=== PATIENT | male | born 1995 | race African-American/Black ===

== ENCOUNTER 2020-07-25 09:48 | Inpatient (IN) | payer OTHER ==
[~2020-07-25] VITALS: Ht 170.2 cm; Wt 83.9 kg
--- NOTE | 2020-07-25 10:38 | NUR ---
Patient has Covid-19 on his chart that is negative from [facility]. I called to verify the results.
--- NOTE | 2020-07-25 10:45 | NUR ---
RCD PT FROM [facility] BY [facility]EL [facility] PT IS ALERT AND ORIENTED VITALS CHECKED PT RESTING ON BED ADMISSION ASSESSMENT AND HISTORY DONE PT HAVE SWELLING ON LEFT ELBOW DRESSING OVER THERE HE DENIED ANY PAIN THIS TIME IV PATENT BY SALINE FLUSH ,INSTRUCTED PT ABOUT HOSPITAL POLICY AND VISITING POLICY BED LOW AND LOCKED CALL LIGHT IN REACH
--- NOTE | 2020-07-25 11:00 | NUR ---
PAGED DR SANCHEZ AND NOTIFIED THE DIET AND MEDICATIONS HE SAID HE WILL TAKE CARE OF THAT
[2020-07-25] MEDS ORDERED: ACETAMINOPHEN 325 MG TAB PO PRN (11:30)
[2020-07-25 11:37] VITALS: BP 130/87
[2020-07-25] MEDS: MORPHINE SULFATE INJ 4 MG/ML INJ 1ML IV PRN ×2 (12:07→18:05)
[2020-07-25] MEDS: ONDANSETRON HCL INJ 2MG/ML 2ML 2 MG/ML VIAL IV PRN ×2 (12:07→18:05)
[2020-07-25 12:25] VITALS: BP 130/87
[2020-07-25 13:37] VITALS: BP_SYST 130
--- NOTE | 2020-07-25 14:00 | NUR ---
COVID TEST DONE REPORT ON CHART( NEG)
--- NOTE | 2020-07-25 14:24 | Consultation ---
DATE OF CONSULTATION: 07/25/2020 REASON FOR CONSULTATION: Left elbow pain. REQUESTING PHYSICIAN: Leonel Fontenot MD. CHIEF COMPLAINT: Left elbow pain. HISTORY OF PRESENT ILLNESS: Nanette Gasca is a 25-year-old male with no past medical history, presents with left elbow pain. It has been present for the past five days. He states that this started with an ingrown hair on his left elbow that he picked with and eventually became infected. He sought care approximately a few days ago when he was prescribed p.o. antibiotics, but continued to have pain over the last five days. He presented to the emergency department last night where he was found to have a left elbow abscess and underwent bedside I and D in the emergency department and packing. He states that his elbow feels better after that. He was admitted for IV antibiotics. He states that his pain is improving. No fevers or chills. No pain with range of motion of the elbow. PAST MEDICAL HISTORY: None. PAST SURGICAL HISTORY: None. 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 No drugs. The patient has an occasional alcohol use. PAST FAMILY HISTORY: None apparent. REVIEW OF SYSTEMS: Negative for numbness or tingling. Negative for fevers or chills. IMAGING DATA: None. LABORATORY STUDIES: Pending. PHYSICAL EXAMINATION: EXTREMITIES: Evaluation of the right upper extremity demonstrates normal painless range of motion. Neurovascularly intact. Nontender to palpation anywhere. Evaluation of left upper extremity demonstrates mild erythema about the elbow extending few centimeters from the tip of the olecranon up to a few cm proximal to the tip of the olecranon. There is approximately 1 cm incision with packing overlying the tip of the olecranon with mild purulent drainage expressed. This is able to be expressed completely. There is packing in place. No other fluctuance noted. There is mild edema to the arm as well. He demonstrates intact AIN, PIN, and ulnar motor function. Sensation intact to light touch in the median, radial, ulnar nerve distributions. His fingers are warm and well perfused. He has no pain with elbow extension. He has mild pain with elbow flexion beyond 90 degrees. ASSESSMENT: Left elbow cellulitis and septic olecranon bursitis, status post bedside I and D in the emergency department 07/24/2020. PLAN: Discussed with the patient that at this point, he does have an infection in his elbow and olecranon bursa; however, subjectively his symptoms are improved and appears to be decompressed. We will start soaks with 50% hydrogen peroxide, 50% saline to his elbow twice a day starting today with packing to be removed and replaced after soak. He has had a compressive Obed wrap over his elbow at all times otherwise instructed elevation of the arm. We will continue to follow. Continue antibiotics per primary team. If no improvement, may consider surgical intervention. However, at this point, does appear to be improved status post I and D. MD JOANNE Díaz/LUIS FELIPE /[id number]
[2020-07-25] MEDS: ACETAMINOPHEN/CODEINE 300MG - 30MG TAB PO PRN (14:50)
--- NOTE | 2020-07-25 14:50 | Diagnostic Imaging Report ---
Exam: Left elbow radiographs-3 views Clinical History: Cellulitis. Comparison: None. Findings/Impression: No evidence of acute fracture or melanoma. No radiographic evidence of osteomyelitis.. No bony erosion. Soft tissue irregularity, with suspected laceration in the volar elbow soft tissues. Surrounding soft tissue edema. No significant elbow joint effusion. Signed by: Dr. German Dawn MD on 07/25/2020 2:47 PM
--- NOTE | 2020-07-25 15:00 | NUR ---
HALF NS AND HALF HYDROGEN PEROXIDE SOAK GIVEN AND DRESSING DONE
--- NOTE | 2020-07-25 15:21 | NUR ---
consult [id number]
[2020-07-25] MEDS ORDERED: SODIUM CHLORIDE 0.9% 250ML 250 ML ONE (17:22)
[2020-07-25] MEDS ORDERED: VANCOMYCIN 1GM/NS 250 ML 250 ML IV SCH (17:30)
[2020-07-25] MEDS: VANCOMYCIN HCL 1.25 GM in SODIUM CHLORIDE 0.9% 250ML 250 ML IV SCH (17:30)
--- NOTE | 2020-07-25 18:10 | Consultation ---
DATE OF CONSULTATION: 07/25/2020 REQUESTING PHYSICIAN: Leonel Fontenot MD REASON FOR CONSULTATION: Consultation requested regarding cellulitis/abscess left elbow. HISTORY OF PRESENT ILLNESS: This is a 25-year-old male, who has no major medical illnesses and no past surgical history, has been complaining of pain in the left elbow for the past 5 days, some swelling, which started around an ingrown hair. He picked on it, it became infected, was placed on some oral antibiotic treatment, but without any improvement, came into the emergency room, noted to have fever and swelling along the left elbow, was seen by Orthopedic Surgery and a localized drainage was performed, cultures are still pending. REVIEW OF SYSTEMS: HEENT: Denies any headaches, visual complaints, sinus congestion, earache, throat pain, or neck pain. RESPIRATORY: No cough or shortness of breath. CARDIOVASCULAR: No chest pain, no palpitations. GI: No nausea, vomiting, or diarrhea. : No urinary symptoms. PAST MEDICAL HISTORY: None. PAST SURGICAL HISTORY: None. ALLERGIES: NO KNOWN DRUG ALLERGIES. CURRENT MEDICATIONS: None. FAMILY HISTORY: Noncontributory. SOCIAL HISTORY: No active alcohol, tobacco, or drug use. PHYSICAL EXAMINATION: VITAL SIGNS: Temperature 97.6, pulse 79, respiratory rate 18, and blood pressure 130/87. HEENT: Normocephalic, atraumatic. Extraocular movements not accessed. NECK: Supple. LUNGS: Fair air entry bilaterally. Clear to auscultation. HEART: Sounds S1, S2. No murmur. No gallop. ABDOMEN: Soft, nontender, and normoactive bowel sounds. EXTREMITIES: There is induration along the left elbow with the full range of motion along the left elbow area. It is warm and tender to touch. LABORATORY DATA: Pending. ASSESSMENT: 1. Cellulitis and probable infected bursitis left elbow, status post drainage. 2. Probable Staphylococcus aureus infection with likely MRSA. RECOMMENDATIONS: Antibiotic treatment with intravenous vancomycin. We will follow up cultures. Further recommendations based on clinical response and culture results. Thank you, Dr. Fontenot for this consultation. We will follow the patient along with you. Billy Henry MD SR/MODL /[id number] cc: Leonel Fontenot MD
[2020-07-25] MEDS ORDERED: LACTATED RINGER'S 1,000 ML INJ ONE (18:30)
--- NOTE | 2020-07-25 18:44 | NUR ---
pt resting on bed bed side report given to oncoming nurse
[2020-07-25 20:00] VITALS: BP 134/80
--- NOTE | 2020-07-25 20:10 | History and Physical ---
CHIEF COMPLAINT: Left elbow pain. HISTORY OF PRESENT ILLNESS: This is a healthy 25-year-old male, who was [facility] and was diagnosed with olecranon bursitis. The patient had an I and D done by the emergency room doctor and felt better afterwards. The patient denies any fever. No nausea, vomiting. This started a week ago when there was a bump on his left shoulder. Subsequently, he picked on it and it got worse and it got swollen and red and painful. The patient took some amoxicillin that he had, however, did not improve, and finally he went to the emergency room. Denies any chest pain. No shortness of breath. The patient has no history of soft tissue abscess in the calf. The patient did not have a lot of pain when he moves his left elbow. PAST MEDICAL AND SURGICAL HISTORY: None. MEDICATIONS: None. ALLERGIES: NONE. SOCIAL HISTORY: He vapes. Occasional alcohol. FAMILY HISTORY: Diabetes. REVIEW OF SYSTEMS: Ten-point review of system obtained and nothing else is significant other than what is stated in the HPI. PHYSICAL EXAMINATION: VITAL SIGNS: Temperature 97.6, pulse 79, respiratory rate 18, blood pressure 130/87. GENERAL: In no acute distress. SKIN: Left elbow takedown which was examined by the orthopedic surgeon. HEENT: Anicteric. Oropharynx is clear. LUNGS: Clear. HEART: Regular rate and rhythm. Normal S1, S2. GI: Abdomen is soft, nondistended. NEUROLOGIC: Alert and oriented x3. Cranial nerves II through XII grossly intact. PSYCHIATRIC: No hallucination. MUSCULOSKELETAL: Normal range of motion of his left elbow. LABORATORY DATA: Laboratory from outside ER, white count 12.6, hemoglobin 17.0, platelet count 189. Creatinine 0.8. ASSESSMENT AND PLAN: 1. Left elbow cellulitis with septic olecranon bursitis, status post bedside incision and drainage. Both Orthopedic and ID have been consulted. For now, IV fluid, IV vancomycin, and monitor. I have updated his mother over the phone. IV morphine as needed. We will wait for outside wound culture results, possibly Staph aureus, may be MRSA. 2. GI and DVT prophylaxis, low risk, not indicated. MD CHELSEA Tucker/LUIS FELIPE /[id number]
--- NOTE | 2020-07-25 21:00 | NUR ---
patient requesting sleep medication for inability to sleep, advised patient that MD SANCHEZ WAS PAGED AWAITING CALL BACK
--- NOTE | 2020-07-25 21:30 | NUR ---
MD SANCHEZ CONTACTED VIA TELEPHONE/MESSAGE LEFT , CALLBACK RECEIVED ADVISED MD OF PATIENT REQUEST, ORDERED TO GIVE TEMAZEPAM PO PRN, ORDER CARRIED OUT
--- NOTE | 2020-07-25 21:40 | NUR ---
HOURLY ROUNDING COMPLETED PER PROTOCOL, PT AOX4 SITTING IN BED, REQUESTING TO BE UNHOOK FROM IV FOR TOILETING AND TO OBTAIN SNACKS FROM VENDING MACHINE, SAFETY MAINTAINED, PATIENT RETURN SAFELY TO THE FLOOR, SNACKS GIVEN PER REQUEST, IV FLUIDS CONTINUED ; IV SITE REMAINS INTACT, NO REDNESS/SWELLING SEEN, CALL LIGHT WITHIN REACH, BED IN LOWEST POSITION, COMFORT MEASURES INCREASED
[2020-07-25] MEDS ORDERED: TEMAZEPAM 15 MG CAP PO PRN (21:45)
--- NOTE | 2020-07-25 22:13 | NUR ---
LR @150CC ONE TIME ONLY BOLUS, CONTINUES PATIENT TOLERATING WELL
[2020-07-26] VITALS (8 sets, daily range): BP systolic 107–152; BP diastolic 54–109
[2020-07-26] MEDS: MORPHINE SULFATE INJ 4 MG/ML INJ 1ML IV PRN ×2 (00:27→10:15)
[2020-07-26] MEDS: ONDANSETRON HCL INJ 2MG/ML 2ML 2 MG/ML VIAL IV PRN ×2 (00:27→10:15)
[2020-07-26] MEDS: VANCOMYCIN HCL 1.25 GM in SODIUM CHLORIDE 0.9% 250ML 250 ML IV SCH ×2 (05:24→17:30)
[2020-07-26 06:45] LABS: BASOPHILS % 0.5 % (0.0-1.0); EOSINOPHILS # (AUTO) 0.2 (0.0-0.4); EOSINOPHILS % 2.5 % (0.0-6.0); HEMATOCRIT 41.3 % (38.2-49.6); HEMOGLOBIN 14.1 g/dL (14.0-18.0); LYMPHOCYTES # (AUTO) 2.1 (1.0-3.2); MEAN CORPUSCULAR HEMOGLOBIN 29.7 pg (28-32); MEAN CORPUSCULAR HGB CONC 34.1 g/dL (31-35); MEAN CORPUSCULAR VOLUME 87.1 fL (81-99); MONOCYTES # (AUTO) 0.6 (0.2-0.8); MONOCYTES % 6.8 % (4.4-11.3); NEUTROPHILS # (AUTO) 5.3 (2.1-6.9); NEUTROPHILS % 63.7 % (38.7-80.0); PLATELET COUNT 166 x10e3/uL (140-360); RED BLOOD COUNT 4.74 x10e6/uL (4.3-5.7); RED CELL DISTRIBUTION WIDTH 12.1 % (11.7-14.4)
[2020-07-26 06:52] LABS: INR 0.96; PROTHROMBIN TIME 13.3 seconds (11.9-14.5)
[2020-07-26 07:00] LABS: ANION GAP 13.1 mmol/L (8-16); BLOOD UREA NITROGEN 10 mg/dL (7-26); BUN/CREATININE RATIO 11 (6-25); CALCIUM 9.1 mg/dL (8.4-10.2); CARBON DIOXIDE 23 mmol/L (22-29); CHLORIDE 106 mmol/L (98-107); CREATININE, SERUM 0.91 mg/dL (0.72-1.25); EST GLOMERULAR FILTRATION RATE > 60 ML/MIN (60-); GLUCOSE 108 mg/dL (74-118); POTASSIUM 4.1 mmol/L (3.5-5.1); SODIUM 138 mmol/L (136-145)
--- NOTE | 2020-07-26 07:00 | NUR ---
RCD PT AT BED PT IS ALERT AND ORIENTED RESTING ON BED IV PATENT BED LOW AND LOCKED CALL LIGHT IN REACH
--- NOTE | 2020-07-26 10:24 | NUR ---
DRESSING CHANGED AFTER SOAK
--- NOTE | 2020-07-26 16:35 | NUR ---
AC TO HUMAIRA BRITTO TROUGH BEFORE 4TH DOSE
[2020-07-26] MEDS ORDERED: SODIUM CHLORIDE 0.9% 250ML 250 ML ONE (17:07)
--- NOTE | 2020-07-26 18:03 | Progress Note ---
DATE: 07/26/2020 CHIEF COMPLAINT: Left elbow pain. HISTORY OF PRESENT ILLNESS: Nanette is a 25-year-old male with history of left septic olecranon bursitis, status post incision and debridement in the emergency department on 07/24/2020. He started doing soaks and packing his wound yesterday and has been on antibiotics. He states that his symptoms are much improved. He has no significant pain. He states that he is feeling much better. No numbness or tingling in his fingers. REVIEW OF SYSTEMS: Negative for fever or chills. Negative for numbness or tingling. PHYSICAL EXAMINATION: EXTREMITIES: Evaluation of the left extremity demonstrates erythema significantly improved to the left elbow. The swelling significantly improved. There is incision at the posterior elbow in the olecranon bursa with packing in place. There is no fluctuance appreciated. There is mild tenderness to palpation. He can perform full range of motion of the elbow without any pain. He is neurovascularly intact distally. IMAGING AND LABORATORY STUDIES: Demonstrate white blood cell count 8. X-rays of the left elbow demonstrate no fracture or dislocation and swelling of the left elbow. ASSESSMENT: Improving left elbow septic olecranon bursitis. PLAN: Discussed with the patient that he is doing very well at this time. Symptoms are much improved. At this point he to p.o. antibiotics and discharge home if he is able to continue doing soaks and packing at home. I instructed the patient on the importance of doing packing and soaks at home. He will discuss this with family to see if they are able to do this with him at home. He is okay to discharge home tomorrow if able to comply with at home. I will see him back in the office in one week for repeat evaluation. He is to continue and exchange the packing each time. MD JOANNE Díaz/LUIS FELIPE /[id number]
--- NOTE | 2020-07-26 18:21 | NUR ---
PAGED DR SANCHEZ AND CLARIFIED THE COVID TEST SINCE THE PT DID THE TEST ON YESTURDAY REPORT IS NEGATIVE ITS ON CHART ,PT CAME ON THE SAME DAY TO HERE. HE SAID CANCEL THE ORDER
--- NOTE | 2020-07-26 18:42 | NUR ---
PT RESTING ON BED BED SIDE REPORT GIVEN TO ONCOMING NURSE
--- NOTE | 2020-07-26 18:58 | NUR ---
SBAR REPORT RECEIVED AT BEDSIDE, PATIENT AWAKE ALERT, ORIENTED REPORT PAIN LEVEL TOLERABLE, LEFT ELBOW WRAPPED, DRESSING DRY INTACT AOX4, GAIT STEADY, PATIENT MADE AWARE THAT POSSIBLE DISCHARGE TOMORROW, EDUCATED ON PAIN MEDICATION, CONCERNS ABOUT WRAPPING WOUND ADDRESSED WITH PATIENT, BED IN LOWEST POSITION AND LOCKED, CALL LIGHT WITHIN REACH
[2020-07-26] MEDS: ACETAMINOPHEN/CODEINE 300MG - 30MG TAB PO PRN (19:48)
--- NOTE | 2020-07-26 22:13 | Progress Note ---
DATE: 07/26/2020 SUBJECTIVE: Left elbow, left hand swelling better. Feels better. Pain has decreased as well. OBJECTIVE: VITAL SIGNS: Temperature 98.0, pulse 86, respiratory rate 20, and blood pressure 138/73. GENERAL: No acute distress. SKIN: No rash. LUNGS: Clear. HEART: Regular rate and rhythm. Normal S1 and S2. GI: Abdomen is soft and nondistended. NEUROLOGIC: Alert and oriented x3. PSYCHIATRIC: No hallucination. LABORATORY DATA: White count 8, hemoglobin 14, and platelet count 166. Creatinine 0.9. ASSESSMENT AND PLAN: 1. Left elbow cellulitis with septic olecranon bursitis, status post bedside incision and drainage. We will continue IV vancomycin. Hopefully, we will get culture results from outside lab tomorrow. Both Infectious Disease and Orthopedics are following as well. The patient potentially can go home tomorrow depending on culture results if available. I have updated his parents over the phone again today. 2. Gastrointestinal and deep venous thrombosis prophylaxis. Low risk, not indicated. MD CHELSEA Tucker/LUIS FELIPE /[id number]
[2020-07-27] VITALS (10 sets, daily range): BP systolic 110–136; BP diastolic 72–89
--- NOTE | 2020-07-27 00:17 | NUR ---
HOURLY ROUNDING COMPLETED PATIENT REQUESTING PAIN MEDICATION FOR PAIN LEVEL 5/10 R/T LEFT ELBOW CELLULITIS, REQUEST CARRIED OUT, PATIENT SEEN LYING IN BED ON PHONE, DRESSED IN STREET CLOTHES, REFUSE GOWN, PERSONAL BELONGINGS WITHIN REACH, WILL CONTINUE TO MONITOR CALL LIGHT WITHIN REACH
[2020-07-27] MEDS: ACETAMINOPHEN/CODEINE 300MG - 30MG TAB PO PRN ×2 (00:20→05:09)
[2020-07-27] MEDS: VANCOMYCIN HCL 1.25 GM in SODIUM CHLORIDE 0.9% 250ML 250 ML IV SCH ×2 (06:28→18:34)
--- NOTE | 2020-07-27 06:29 | NUR ---
VANCO TROUGH PERFORMED PRIOR TO 4TH DOSE ORDERD BY , VANCO TROUGH 7.1, THERAPY CONTINUED
[2020-07-27] MEDS: MORPHINE SULFATE INJ 4 MG/ML INJ 1ML IV PRN (08:30)
--- NOTE | 2020-07-27 18:33 | Progress Note ---
DATE: CONSULTING PHYSICIAN: Jazzy Rico MD CHIEF COMPLAINT: Left elbow pain. HISTORY OF PRESENT ILLNESS: Nanette is a 25-year-old male who is now three days status post incision and debridement of his left elbow septic olecranon bursitis. He has been doing well with his pain well controlled. He notes that his pain is significantly improved. No numbness or tingling to his fingers. REVIEW OF SYSTEMS: Negative for fevers or chills. Negative for numbness or tingling. PHYSICAL EXAMINATION: No acute distress, lying in bed. No discoloration. Left upper extremity demonstrates packing in place. There is no erythema. There is minimal drainage from his incision. He has full painless elbow range of motion and is neurovascularly intact distally. ASSESSMENT: Doing well status post incision and debridement of left septic olecranon bursitis. PLAN: Doing well. The patient is stable for discharge home. He will continue appropriate antibiotics. We will see him back in the office in one week for repeat evaluation. Jazzy Rico MD HD/MODL /[id number]
--- NOTE | 2020-07-27 19:25 | NUR ---
Patient received sitting up in bed. AAO x 4. No complaints of pain. No signs of respiratory distress. Dressing to left elbow CDI. Safety measures in place. Patient instructed to call for assistance when needed. Call light within reach.
--- NOTE | 2020-07-27 20:23 | Progress Note ---
DATE: 07/27/2020 SUBJECTIVE: Left arm feeling better. OBJECTIVE: VITAL SIGNS: Temperature 97.9, pulse 53, respiratory rate 19, blood pressure 136/74. GENERAL: No acute distress. SKIN: No rash. LUNGS: Clear. HEART: Regular rate and rhythm. Normal S1 and S2. GI: Abdomen is soft, nondistended. NEUROLOGIC: Alert and oriented x3. PSYCHIATRIC: No depression. LABORATORY DATA: No new labs today. ASSESSMENT AND PLAN: 1. Left elbow cellulitis with septic olecranon bursitis, status post I and D. We will continue IV vancomycin. Unfortunately, culture results from outside lab still not available. I have spoken to the parents last night over the phone. They are very concerned about their son. At this time, I will wait one more day for culture results to come back all. 2. Gastrointestinal and deep venous thrombosis prophylaxis. Low risk, not indicated. Radhaching MD CHELSEA Altman/LUIS FELIPE /[id number]
[2020-07-28] VITALS: BP 149/77
[2020-07-28] MEDS: MORPHINE SULFATE INJ 4 MG/ML INJ 1ML IV PRN (02:03)
[2020-07-28 04:00] VITALS: BP 121/68
[2020-07-28] MEDS: VANCOMYCIN HCL 1.25 GM in SODIUM CHLORIDE 0.9% 250ML 250 ML IV SCH (05:52)
--- NOTE | 2020-07-28 07:00 | NUR ---
Walking rounds done. Shift report given to oncoming nurse regarding patient's status.
[2020-07-28 07:58] VITALS: BP 121/68
[2020-07-28 08:00] VITALS: BP 108/56
--- NOTE | 2020-07-28 11:58 | NUR ---
Wound care completed to left elbow
[2020-07-28 12:00] VITALS: BP 145/76
--- NOTE | 2020-07-28 15:04 | NUR ---
Discharge instructions were given to the patient, he verbalized understanding. Patient understands how to care for wound until seen by Dr Rioc next week. IV removed from right hand
[2020-07-28 16:00] VITALS: BP 133/63
--- NOTE | 2020-07-28 23:00 | Discharge Summary ---
FINAL DIAGNOSIS: Left elbow cellulitis with methicillin-resistant Staphylococcus aureus septic of left olecranon bursitis. CONSULTANTS: 1. Dr. Henry, Infectious Disease. 2. Dr. Rico, orthopedic surgeon. PROCEDURE/STUDIES PERFORMED: I and D done by the ER doctor. HISTORY: Per dictated H and P. HOSPITAL COURSE: The patient was admitted. The patient was started on IV antibiotics. His left elbow continued to improve. Finally, the outside cultures came back, which is MRSA, sensitive to doxycycline. The patient will go home on doxycycline. The patient will follow up with orthopedics in one week and ID in two weeks. The patient was seen and examined today. CONDITION ON DISCHARGE: Improved. DISCHARGE MEDICATIONS: Please see medication reconciliation form. MD CHELSEA Tucker/LUIS FELIPE /[id number]
== END 2020-07-28 17:29 | disposition home or self-care (01) | DRG 558 ==
LOC: MED/SURG2 09:48 → OBSVTOIN 11:29
PROVIDERS: ADMIT Internal Medicine; ATTEND Internal Medicine
DX: M71.122 Other infective bursitis, left elbow (principal); L03.114 Cellulitis of left upper limb; B95.62 Methicillin resistant Staphylococcus aureus infection as the cause of diseases classified elsewhere; Z83.3 Family history of diabetes mellitus
CPT/HCPCS: 36415; 80048; 80202; 85025; 85610; 85730; 96361; J2270; J2405; J3370; J7050; J7121